=== PATIENT | male | born 1985 | race Caucasian/White ===

== ENCOUNTER 2017-03-28 20:06 | Emergency (ER) | payer MEDICAID ==
[~2017-03-28] VITALS: Ht 180.3 cm; Wt 97.5 kg
[2017-03-28 20:21] VITALS: BP_SYST 119
--- NOTE | 2017-03-28 21:15 | NUR ---
Patient to [facility] for evaluation. Side rails up. Report received from Bella LERNER.
--- NOTE | 2017-03-28 21:20 | NUR ---
ED RESIDENT SERVICES MANAGER Lane at bedside for medical evaluation.
--- NOTE | 2017-03-28 21:25 | NUR ---
Patient arrived to ED a/o x 4 with c/o swelling to the left hand and forearm. Patient reports onset of swelling began to occur 1 week ago. Patient presents with 2+ pitting edema to the left hand and forearm. PMS present to the affected extremity. PMS present to the affected extremity. Patient denies fever. Reports pain 7/10 at this time. Will continue to monitor.
[2017-03-28] MEDS ORDERED: DIPH-TET-PERTUS Vaccine 0.5 ML VIAL (ADACEL) I.M. ONE (21:30)
[2017-03-28] MEDS ORDERED: CLINDAMYCIN 600 mg/50mL D5W 50 ML IV ONE (21:30)
[2017-03-28] MEDS ORDERED: IBUPROFEN 800 MG TABLET PO ONE (21:30)
[2017-03-28 21:44] LABS: BASOPHILS # (AUTO) 0.1 K/uL (0.0-0.2); EOSINOPHILS # (AUTO) 0.1 K/uL (0.0-0.4); EOSINOPHILS % (AUTO) 1.8 % (0.0-4.0); HEMATOCRIT 46.7 % (36-54); HEMOGLOBIN 15.5 g/dL (14.0-18.0); LYMPHOCYTES # (AUTO) 2.4 K/uL (1.0-5.5); LYMPHOCYTES % (AUTO) 29.5 % (20.5-51.5); MEAN CORPUSCULAR HEMOGLOBIN 29 pg (27-31); MEAN CORPUSCULAR HGB CONC 33 % (32-36); MEAN CORPUSCULAR VOLUME 88 fL (79.0-98.0); MONOCYTES # (AUTO) 0.5 K/uL (0.0-1.0); MONOCYTES % (AUTO) 6.7 % (1.7-9.3); PLATELET COUNT (AUTO) 274 K/uL (130-430); RED BLOOD CELL COUNT(AUTO) 5.32 MIL/uL (4.2-6.2); RED CELL DISTRIBUTION WIDTH 12.7 % (9.0-15.0); WHITE BLOOD COUNT (AUTO) 8.1 K/uL (4.8-10.8)
--- NOTE | 2017-03-28 22:10 | NUR ---
ED EMT Adarsh at bedside to place voler splint to affected extremity.
--- NOTE | 2017-03-28 22:15 | NUR ---
Patient reports pain 2/10 15 minutes after administration of clindamycin. No adverse reactions noted. Will continue to monitor.
--- NOTE | 2017-03-28 22:25 | NUR ---
ED ENERGY SYSTEMS ENGINEER Lane at bedside for reassessment.
[2017-03-28 22:49] VITALS: BP_SYST 124
--- NOTE | 2017-03-28 22:49 | NUR ---
Patient given written and verbal discharge instructions and verbalizes understanding. ER MD discussed with patient the results and treatment provided. Patient in stable condition. ID arm band removed. IV catheter removed intact and dressing applied, no active bleeding. Rx of motrin, doxycycline, mupirocin given. Patient educated on pain management and to follow up with PMD. Pain Scale 2/10 tolerable for patient. Opportunity for questions provided and answered.
--- NOTE | 2017-03-29 01:30 | NUR ---
Eusebio lombardo in EDM - 03/29/17 at [email or web address] at bedside for medical evaluation.
== END 2017-03-28 22:49 | disposition home or self-care (01) ==
LOC: SED 20:06
DX: L03.012 Cellulitis of left finger (principal)
CPT/HCPCS: 29125; 36415; 73140; 85025; 87040; 90471; 90715; 96365; 99285; J3490

== ENCOUNTER 2018-08-06 20:46 | Emergency (ER) | payer SELFPAY ==
[~2018-08-06] VITALS: Ht 180.3 cm; Wt 97.5 kg
[2018-08-06 20:48] VITALS: BP_SYST 150
[2018-08-06] MEDS ORDERED: IPRATROPIUM/ALBUTEROL SULFATE 3 ML AMPUL.NEB (DUONEB) INH ONE (22:30)
[2018-08-06] MEDS ORDERED: BACITRACIN 1 GM OINT TP ONE ×2 (23:15→23:24)
[2018-08-06 23:25] VITALS: BP_SYST 135
== END 2018-08-06 23:25 | disposition home or self-care (01) ==
LOC: SED 20:46
DX: J40 Bronchitis, not specified as acute or chronic (principal); R03.0 Elevated blood-pressure reading, without diagnosis of hypertension; F17.210 Nicotine dependence, cigarettes, uncomplicated
CPT/HCPCS: 36600; 71045; 99283; J7620

== ENCOUNTER 2020-06-02 15:42 | Emergency (ER) | payer BC ==
[~2020-06-02] VITALS: Ht 175.3 cm; Wt 94.3 kg
[2020-06-02 16:00] VITALS: BP_SYST 152
[2020-06-02] MEDS ORDERED: DILTIAZEM HCL 25 MG/5 ML VIAL ONE (16:11)
--- NOTE | 2020-06-02 16:21 | NUR ---
Patient triaged and placed in ER hallway. VSS and patient appears clean gauze and pressure applied to wound. Awaiting available bed, and MD notified of need for MSE.
--- NOTE | 2020-06-02 16:25 | NUR ---
DR. LION EVALUATING PT
[2020-06-02] MEDS ORDERED: HYDROcodone/ACETAMIN 5-325 MG TAB (NORCO/ VICODIN) PO ONE (16:30)
--- NOTE | 2020-06-02 16:31 | NUR ---
MEDICATED PER MD ORDER
--- NOTE | 2020-06-02 16:35 | NUR ---
PT CAME FROM HOME WITH CO R HAND LAC. REPORTS HE WAS INSTALLING A LANCE LIGHT WINDOW WHEN THE GLASS BROKE AND CUT HIS HAND. PRESENTS WITH HAND WRAPPED IN COMPRESSION DRESSING BY EMS. DENIES ANY OTHER MEDICAL CONDITIONS AT THIS TIME. AAOX4, V/S STABLE
--- NOTE | 2020-06-02 16:40 | NUR ---
# 20 gauge angiocath placed to RAC. Use of asceptic technique. Opsite placed over site. Blood return noted. Flushed with 10 cc of normal saline. No evidence of infiltration noted. Patient tolerated well.
[2020-06-02] MEDS ORDERED: KETOROLAC TROMETHAMINE 30 MG VIAL IM ONE (16:45)
[2020-06-02] MEDS ORDERED: MORPHINE 4 MG/ML INJ. SYRINGE IVP ONE (16:45)
--- NOTE | 2020-06-02 16:45 | NUR ---
PT MEDICATED FOR PAIN PER MD ORDER
--- NOTE | 2020-06-02 17:01 | NUR ---
Patient to ER bed 8 to gown for evaluation. Side rails up. Report given to YANN Durham.
[2020-06-02] MEDS ORDERED: fentaNYL CITRATE/PF 100 MCG/2 ML AMP IVP ONE (17:30)
--- NOTE | 2020-06-02 17:30 | NUR ---
AT BEDSIDE, WOUND CLEANED AND SUTURED. BACITRACIN APPLIED, GAUZE AND BANDAGE WRAP APPLIED TO LEFT HAND. PT TOLERATED WELL
[2020-06-02] MEDS ORDERED: LIDOCAINE 2%, 20 ML MDV INJ ONE (17:45)
[2020-06-02] MEDS ORDERED: LIDOCAINE 2%, 20 ML MDV ONE (18:00)
--- NOTE | 2020-06-02 18:09 | NUR ---
MD MEDICATED FOR PAIN PER MD ORDER
--- NOTE | 2020-06-02 18:20 | NUR ---
Patient given written and verbal discharge instructions and verbalizes understanding. ER MD discussed with patient the results and treatment provided. Patient in stable condition. ID arm band removed. IV catheter removed intact and dressing applied, no active bleeding. Rx of BACTRIM, IBUPROFEN given. Patient educated on pain management and to follow up with PMD. Pain Scale 0/10. Opportunity for questions provided and answered. Medication side effect fact sheet provided.
[2020-06-02] MEDS ORDERED: BACITRACIN 1 GM OINT TP ONE (18:26)
[2020-06-02 18:36] VITALS: BP_SYST 143
== END 2020-06-02 18:36 | disposition home or self-care (01) ==
LOC: SED 15:42
DX: S61.412A Laceration without foreign body of left hand, initial encounter (principal); W25.XXXA Contact with sharp glass, initial encounter; Y93.89 Activity, other specified; Y92.89 Other specified places as the place of occurrence of the external cause; Y99.8 Other external cause status
CPT/HCPCS: 12002; 73090; 96374; 96375; 99284; J2001; J2270; J3010; J3490

== ENCOUNTER 2021-04-24 21:23 | Emergency (ER) | payer BC ==
[~2021-04-24] VITALS: Ht 182.9 cm; Wt 88.5 kg
[2021-04-24 21:50] VITALS: BP_SYST 134
[2021-04-24] MEDS ORDERED: IBUPROFEN 600 MG TABLET PO ONE (22:00)
--- NOTE | 2021-04-24 22:57 | NUR ---
Patient wheeled to bed 2 for evaluation
--- NOTE | 2021-04-24 23:00 | NUR ---
Pt BIB family to ED C/O L Knee pain, stating while playing basketball he heard a " pop " VS stable no s/s of acute distress Resting on gurney rails up
--- NOTE | 2021-04-24 23:10 | NUR ---
Dr. Portillo bedside for pt eval
[2021-04-24] MEDS ORDERED: IBUP-1969 PO (23:52)
[2021-04-25 00:05] VITALS: BP_SYST 134
--- NOTE | 2021-04-25 00:05 | NUR ---
Patient given written and verbal discharge instructions and verbalizes understanding. ER MD discussed with patient the results and treatment provided. Patient in stable condition. ID arm band removed. Rx of Ibuprofen given. Patient educated on pain management and to follow up with PMD. Pain Scale 0/10 Opportunity for questions provided and answered. Medication side effect fact sheet provided.
== END 2021-04-25 00:05 | disposition home or self-care (01) ==
LOC: SED 21:23
DX: S86.112A Strain of other muscle(s) and tendon(s) of posterior muscle group at lower leg level, left leg, initial encounter (principal); X50.9XXA Other and unspecified overexertion or strenuous movements or postures, initial encounter; Y93.67 Activity, basketball; Y92.89 Other specified places as the place of occurrence of the external cause; Y99.8 Other external cause status
CPT/HCPCS: 73590-TC; 99284

== ENCOUNTER 2022-09-03 08:02 | Emergency (ER) | payer SELFPAY ==
[~2022-09-03] VITALS: Ht 182.9 cm; Wt 88.5 kg
[~2022-09-03 08:02] MED LIST: IBUP-1969 PO
--- NOTE | 2022-09-03 08:04 | NUR ---
Pt brought by self,A&Ox4, pt presents to ER with LAC on L hand after grabbing a tool, bleeding controled, skin pink and warm, cap refill < 3 , VSS, will cont to monitor.
[2022-09-03 08:10] VITALS: BP_SYST 164
[2022-09-03] MEDS ORDERED: LIDOCAINE/EPI 1% 1:100000 20 ML VIAL INJ ONE (08:15)
--- NOTE | 2022-09-03 08:20 | NUR ---
Dr Macedo evaluating patient at bedside
[2022-09-03] MEDS ORDERED: LIDOCAINE/EPI 1% 1:100000 20 ML VIAL ONE (08:26)
--- NOTE | 2022-09-03 08:30 | NUR ---
Patient has laceration to R hand . Dr Macedo applied sutures using sterile technique. Edges well approximated. Site cleansed with NS. Dressing of applied to site. No bleeding noted. Pt tolerated well.
[2022-09-03] MEDS ORDERED: BACITRACIN 1 GM OINT TP ONE ×2 (09:27→09:30)
[2022-09-03 09:55] VITALS: BP_SYST 164
--- NOTE | 2022-09-03 09:56 | NUR ---
Patient given written and verbal discharge instructions and verbalizes understanding. ER MD discussed with patient the results and treatment provided. Patient in stable condition. ID arm band removed. No Rx given. Patient educated on pain management and to follow up with PMD. Pain Scale 3/10. Opportunity for questions provided and answered. Medication side effect fact sheet provided.
== END 2022-09-03 09:55 | disposition home or self-care (01) ==
LOC: SED 08:02
DX: S61.411A Laceration without foreign body of right hand, initial encounter (principal); Z79.899 Other long term (current) drug therapy; W26.8XXA Contact with other sharp object(s), not elsewhere classified, initial encounter; Y93.89 Activity, other specified; Y92.89 Other specified places as the place of occurrence of the external cause; Y99.8 Other external cause status
CPT/HCPCS: 99282